=== PATIENT | male | born 1995 ===

== ENCOUNTER 2017-07-28 19:47 | Emergency (ER) | payer MEDICAID ==
[~2017-07-28] VITALS: Ht 167.6 cm; Wt 84.1 kg
[~2017-07-28 19:47] MED LIST: NPR500T PO
[2017-07-28 19:54] VITALS: BP 145/81; PULSE 97; RESP 20; O2SAT 99
--- NOTE | 2017-07-28 21:04 | ED.REPORT ---
HPI-URI / Cough / Cold Date of Service Jul 28, 2017 ED Provider: Stevie Bowling DO A 22 year old male with a history of asthma presents to the ED with a persistent cough that began 3 days ago. Associated symptoms include subjective fever, chills, sore throat, nasal congestion, and myalgias. His symptoms were at their most severe this morning and have gradually improved as the day progressed. The patient took Tylenol and Nyquil this morning with no relief. He presents to the ED this evening for symptom relief. Patient is light tobacco smoker. Patient is up to date on all of his vaccinations. Nursing Notes Stated Complaint: COUGH, SORE THROAT Chief Complaint: FLU/Cold Symptoms Nursing Notes Reviewed: Yes Allergies: Coded Allergies: No Known Allergies (Unverified Allergy, Unknown, 07/08/16) Scheduled PRN Benzonatate (Tessalon Perle) 100 Mg Capsule 100 MG PO TID PRN PRN For Cough Naproxen (Naproxen) 500 Mg Tab 500 MG PO BID PRN PRN For Pain General Time Seen by MD: 21:03 Chief Complaint Cough, productive... Hx Obtained From: Patient Arrived By: Walk-in Onset Occurred: 3 days ago Symptom Duration: Since onset Location: : Pharynx Quality: Painful Severity: Current: Mild Severity: Maximum: Moderate Associated with: Reports: Body aches, Chills, Cough, Fever, Myalgia Pertinent Negative: Pt denies other symptoms Context: Immunization Status General: All up to date Recent Healthcare: No recent doctor visit, No recent hospitalization Past Medical History Past Medical History Reports: Asthma Past Surgical History Denies Social History Alcohol Use: "Social" Drug Use: In recovery, Meth, THC Other Social History: Good social support, Local resident Ambulatory Status Independent Review of Systems Constitutional: Reports: Chills, Fever Ears / Nose / Throat: Reports: Nasal congestion, Sore throat Respiratory: Reports: Prod cough, clear Complete sys rev & neg: except as marked. Physical Exam Initial Vital Signs Vital Signs (First) Date Time Temp Pulse Resp B/P Pulse Ox O2 Delivery O2 Flow Rate FiO2 07/28/17 19:54 38.0 97 20 145/81 99 Room Air Initial VS: Reviewed Neck: Supple, Non-tender, Full range of motion Extremities: Vascular intact, Neuro intact, No swelling, No tenderness Skin: Warm, Dry, No cyanosis Neurologic: Alert, Oriented, Nonfocal Psychiatric: Mood/affect normal, Behavior normal, Normal thought content General/Constitutional: Awake, Alert Distress / Hydration: Positive: Distress mild ENT: Atraumatic, Airway patent, Tympanic membs NL, Ext aud canal NL Pharynx / Tonsils / Uvula: Negative: Pharyngeal erythema, Tonsillar erythema L , Tonsillar erythema R, Tonsillar exudate L, Tonsillar exudate R, Tonsillar swelling L, Tonsillar swelling R Nose: Positive: Discharge nasal clear Respiratory / Chest: Atraumatic, Breath sounds NL, Breath sounds = bilat, No respiratory distress Cardiovascular: Heart rate NL, Regular rhythm, Heart sounds NL Abdomen: Atraumatic, Soft, Non-tender Re-Eval/Medical Decision Med Decision/Clinical Course Med Decision/Clinical Course: Lungs are clear on exam. History and physical exam suggests this is a viral upper respiratory infection. Patient is young and otherwise healthy. Stable for discharge. Recommend supportive care. Return and follow-up precautions given. Re-Evaluation/Progress : Time of Eval: 21:22 Patient Status: Condition improved Re-Evaluation/Progress Note: Upon recheck, the patient's symptoms have improved following treatment. He is informed of his results and the intended treatment plan. All questions are addressed at this time and he is agreeable to the current plan. Counseled Regarding: Diagnosis, Need for follow-up, When/why to return to ED Discharge & Departure Impression: Primary Impression: Upper respiratory infection URI type: unspecified URI Qualified Code: J06.9 - Acute upper respiratory infection, unspecified Disposition: Home Discharge Condition All VS Reviewed: Yes Condition: Improved Patient Instructions: Upper Respiratory Infection (ED) Additional Instructions: Thank you for trusting us with your care this evening. Your emergency department evaluation today is reassuring that there is no emergent cause for concern at this time and your symptoms are likely due to an upper respiratory infection. Schedule a follow up appointment with your primary care physician in the next 1- 2 days for a recheck. Take 1-2 200 mg of ibuprofen every 4-6 hours as needed for pain and fever. I recommend that you purchase an over the counter decongestant. Please return to the emergency department for any new or worsening symptoms including any worsening fever, chills, headache, neck pain, coughing up blood, or any other symptoms of concern to you. Referrals: [facility] (PCP) Teresita Andersen Attestation Portions of this note were transcribed by Jermaine Adan. I, Dr. Evelyn Melton personally performed the history, physical exam and medical decision-making; I reviewed and confirmed the accuracy of the information in the transcribed note. Signed by Maya Ayala, 07/28/17. Stevie Bowling DO Jul 28, 2017 21:04 JERMAINE ADAN Jul 28, 2017 21:22
[2017-07-28] MEDS ORDERED: BENZ-12 PO (21:36)
== END 2017-07-28 21:40 | disposition home or self-care (01) ==
LOC: SED 19:47
DX: J06.9 Acute upper respiratory infection, unspecified (principal); R50.9 Fever, unspecified; M79.1 Myalgia; J45.909 Unspecified asthma, uncomplicated